=== PATIENT | male | born 1975 | race Caucasian/White ===

== ENCOUNTER 2019-01-24 04:39 | Emergency (ER) | payer BC, OTHER ==
[~2019-01-24] VITALS: Ht 172.7 cm; Wt 74.8 kg
[2019-01-24] MEDS ORDERED: HYDR-2761 PO (05:26)
[2019-01-24] MEDS ORDERED: CEPH-264 PO (05:26)
[2019-01-24 05:36] VITALS: BP 140/86
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
== END 2019-01-24 05:37 | disposition home or self-care (01) ==
LOC: ER 04:39
DX: S01.81XA Laceration without foreign body of other part of head, initial encounter (principal); V29.9XXA Motorcycle rider (driver) (passenger) injured in unspecified traffic accident, initial encounter; Y93.89 Activity, other specified; Y92.410 Unspecified street and highway as the place of occurrence of the external cause; Y99.8 Other external cause status
CPT/HCPCS: 12013; 99283